=== PATIENT | female | born 1940 | race Two or more races ===

== ENCOUNTER 2018-12-28 15:34 | Emergency (ER) | payer SELFPAY ==
[~2018-12-28] VITALS: Ht 170.2 cm; Wt 90.7 kg
[2018-12-28 16:06] VITALS: BP 155/71
[2018-12-28] MEDS ORDERED: ALBUTEROL SULF 2.5 MG/0.5ML(0.5%) NEB SOLN NEB ONE (19:30)
[2018-12-28] MEDS ORDERED: IPRATROPIUM BROM 0.5 MG/2.5ML INH SOL NEB ONE (19:30)
== END 2018-12-28 20:50 | disposition home or self-care (01) ==
LOC: ER 15:34
DX: J40 Bronchitis, not specified as acute or chronic (principal); L25.9 Unspecified contact dermatitis, unspecified cause; I10 Essential (primary) hypertension; M19.90 Unspecified osteoarthritis, unspecified site
CPT/HCPCS: 71046; 99283; J7611; J7644